=== PATIENT | female | born 1975 | race Hispanic/Latino ===

== ENCOUNTER 2022-01-12 18:26 | Emergency (ER) | payer BC, OTHER ==
[~2022-01-12] VITALS: Ht 160 cm; Wt 73.5 kg
[2022-01-12 19:40] LABS: BASOPHILS % (AUTO) 0.5 % (0.0-5.0); EOSINOPHILS % (AUTO) 1.7 % (0.0-8.0); HEMATOCRIT 41.8 % (36-48); LYMPHOCYTES % (AUTO) 29.4 % (21.0-51.0); MEAN CORPUSCULAR HEMOGLOBIN 29.4 pg (27.0-33.0); MEAN CORPUSCULAR HGB CONC 34.7 g/dL (32.0-36.0); MEAN CORPUSCULAR VOLUME 84.6 fL (79-99); MONOCYTES % (AUTO) 4.8 % (3.0-13.0); NEUTROPHILS % (AUTO) 63.3 % (40.0-77.0); PLATELET COUNT (AUTO) 328 K/uL (130-400); RED BLOOD CELL COUNT(AUTO) 4.94 MIL/uL (4.00-5.50); RED CELL DISTRIBUTION WIDTH 14.1 % (11.0-15.5); WHITE BLOOD COUNT (AUTO) 9.9 K/uL (4.8-10.8)
[2022-01-12 19:54] LABS: CREATININE 0.8 mg/dL (0.5-1.5); POTASSIUM 3.4 mmol/L (3.5-5.1); TOTAL PROTEIN, SERUM 8.1 g/dL (6.0-8.3)
[2022-01-12 20:24] LABS: APPEARANCE,URINE CLEAR (CLEAR); BILIRUBIN,URINE NEGATIVE (NEGATIVE); COLOR,URINE LIGHT-YELLOW (YELLOW); GLUCOSE, URINE (UA) NEGATIVE (NEGATIVE); KETONES,URINE NEGATIVE (NEGATIVE); LEUKOCYTE ESTERASE ,URINE NEGATIVE Leu/uL (NEGATIVE); NITRATE,URINE NEGATIVE (NEGATIVE); OCCULT BLOOD,URINE NEGATIVE (NEGATIVE); PH,URINE 6.5 (5.0-8.0); PROTEIN,URINE NEGATIVE (NEGATIVE); UROBILINOGEN,URINE 0.2 mg/dL (0.2-1.0)
[2022-01-12 20:26] LABS: BACTERIA,URINE RARE /HPF (None Seen); MUCUS,URINE RARE LPF (None Seen); SQUAMOUS EPITHELIAL CELL,UR RARE /HPF (0-2)
[2022-01-12] MEDS ORDERED: KETOROLAC 30MG VIAL (30MG/ML) IVP ONE (20:30)
[2022-01-12] MEDS ORDERED: IOHEXOL 350 MG/ML 100ML INFUS..BTL IV ONE (20:44)
[2022-01-12 21:30] VITALS: BP 98/50
[2022-01-12] MEDS ORDERED: ONDANSETRON 4MG INJ IVP ONE (21:30)
[2022-01-12] MEDS ORDERED: MORPHINE 4 MG SYG IVP ONE (21:30)
[2022-01-12] MEDS ORDERED: TRAM50TA4 PO (21:45)
[2022-01-12] MEDS ORDERED: DICY20TA2 PO (21:45)
[2022-01-12] MEDS ORDERED: DICYCLOMINE 20MG (10MG/ML) AMP IM STA (22:20)
== END 2022-01-12 22:34 | disposition home or self-care (01) ==
LOC: EDH 18:26
DX: R10.31 Right lower quadrant pain (principal); R11.0 Nausea; Z88.8 Allergy status to other drugs, medicaments and biological substances; Z90.49 Acquired absence of other specified parts of digestive tract; Z98.890 Other specified postprocedural states
CPT/HCPCS: 74177; 99284; 96374; 96375; 80053; 85025; 87088; 81001; 36415; 96372; J2405; J2270; J1885; J0500; Q9967

== ENCOUNTER 2024-04-12 00:32 | Emergency (ER) | payer BC ==
[~2024-04-12] VITALS: Ht 160 cm; Wt 79.8 kg
[~2024-04-12 00:32] MED LIST: DICY20TA2 PO; TRAM50TA4 PO
[2024-04-12] MEDS: IpraTROPium/alBUTERol SULFATE 3 ML SOLUTION IH ONE ×2 (01:21→01:35)
[2024-04-12 01:22] VITALS: PULSE 96; RESP 19
[2024-04-12 01:26] LABS: BASOPHILS # (AUTO) 0.05 K/uL (0.00-0.20); BASOPHILS % (AUTO) 0.9 % (0.0-5.0); EOSINOPHILS # (AUTO) 0.12 K/uL (0.00-0.70); EOSINOPHILS % (AUTO) 2.1 % (0.0-8.0); HEMATOCRIT 41.4 % (36-48); IMMATURE GRANULOCYTE ABSOLUTE 0.01 K/uL (0-1); LYMPHOCYTES # (AUTO) 2.8 K/uL (1.0-4.8); LYMPHOCYTES % (AUTO) 48.5 % (21.0-51.0); MEAN CORPUSCULAR HEMOGLOBIN 29.1 pg (27.0-33.0); MEAN CORPUSCULAR HGB CONC 34.1 g/dL (32.0-36.0); MEAN CORPUSCULAR VOLUME 85.5 fL (79-99); MONOCYTES # (AUTO) 0.3 K/uL (0.1-1.0); MONOCYTES % (AUTO) 5.6 % (3.0-13.0); NEUTROPHILS # (AUTO) 2.4 K/uL (1.8-7.7); NEUTROPHILS % (AUTO) 42.7 % (40.0-77.0); PLATELET COUNT (AUTO) 302 K/uL (130-400); RED BLOOD CELL COUNT(AUTO) 4.84 MIL/uL (4.00-5.50); RED CELL DISTRIBUTION WIDTH 14.1 % (11.0-15.5); WHITE BLOOD COUNT (AUTO) 5.7 K/uL (4.8-10.8)
[2024-04-12 01:33] LABS: CREATININE 0.7 mg/dL (0.5-1.0)
[2024-04-12] MEDS: Solu-medROL 125MG VIAL IVP ONE (01:35)
[2024-04-12 01:36] VITALS: PULSE 93; RESP 19
[2024-04-12] MEDS: 0.9%NACL 1000ML 1,000 ML IV ONE (01:39)
[2024-04-12 01:40] LABS: POTASSIUM 2.8 mmol/L (3.5-5.1); SARS-CoV-2, RNA, NAAT NEGATIVE SARS CoV-2 (NEGATIVE)
[2024-04-12 01:45] LABS: INFLUENZA TYPE A Negative For Type A (NEGATIVE); INFLUENZA TYPE B Negative For Type B (NEGATIVE)
[2024-04-12] MEDS: PoTASSium BIcarbonate/CIT AC 25 MEQ TABLET.EFF ONE (01:55)
[2024-04-12] MEDS: MAGNESIUM 2GM PREMIX 50ML 50 ML IV ONE (01:56)
[2024-04-12] MEDS: MAGNESIUM 2GM PREMIX 50ML 50 ML IV SCH (01:58)
[2024-04-12] MEDS: PoTASSium BIcarbonate/CIT AC 25 MEQ TABLET.EFF PO ONE (01:58)
[2024-04-12] MEDS ORDERED: METH4TAB3 PO (02:22)
[2024-04-12] MEDS ORDERED: FLUT1BLS11 IH (02:22)
[2024-04-12] MEDS ORDERED: BENZ-39 PO (02:22)
--- NOTE | 2024-04-12 02:26 | ERN ---
General Chief Complaint: Shortness of Breath Stated Complaint: C/O COUGH,SOB,WHEEZING, HEADACHE, CHEST DISCOMFORT Time Seen by MD: 00:34 Time Seen by Midlevel: 00:34 Source: patient History of Present Illness Initial Comments The patient is a 49-year-old female presenting to the emergency department for evaluation of cough that has been progressively worsening over the last two weeks. 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 She has been taking [id number] medication with little to no relief. Allergies: Coded Allergies: nitrofurantoin (Unverified Allergy, Unknown, 01/12/22) Home Meds Active Scripts Fluticasone Propion/Salmeterol (Fluticasone-Salmeterol 100-50) 100 Mcg-50 Mcg/Dose Blst.w.dev, 1 PUFF IH BID for wheezing/sob for 30 Days, #60 EACH 0 Refills Prov:VALERIE HUANG 04/12/24 Benzonatate (Tessalon Perles) 100 Mg Cap, 100 MG PO TID for cough, #30 CAP 0 Refills Prov:VALERIE HUANG 04/12/24 Methylprednisolone (Medrol) 4 Mg Tab.ds.pk, 1 TAB PO AD for 6 Days, #21 TAB 0 Refills 6 on day 1 then reduce by one tablet daily until gone Prov:VALERIE HUANG 04/12/24 Tramadol Hcl (Tramadol HCl) 50 Mg Tablet, 50 MG PO TIDP PRN for PAIN, #12 TAB Prov:ELFEGO FOSTER MD 01/12/22 Dicyclomine HCl (Bentyl) 20 Mg Tab, 20 MG PO TIDP PRN for PAIN, #30 TAB Prov:ELFEGO FOSTER MD 01/12/22 Past Medical History Past Medical History: No Pertinent History Medical History Other: ENDOMETRIOSIS Past Surgical History: Hysterectomy, Cholecystectomy Social History Social History: ETOH, Lives with family ROS Dictation CONSTITUTIONAL: Negative except for HPI HEAD/FACE: Negative except for HPI EENT: Negative except for HPI RESPIRATORY: Negative except for HPI GASTROINTESTINAL/ABDOMINAL: Negative except for HPI GENITOURINARY: Negative except for HPI MUSCULOSKELETAL: Negative except for HPI INTEGUMENTARY: Negative except for HPI NEUROLOGICAL/PSYCH: Negative except for HPI HEMATOLOGIC/LYMPHATIC: Negative except for HPI All Systems Negative, Except as noted above. 13 point review of systems assessed and all negative except for above. Physical Exam Physical Exam Dictation Vital Signs reviewed General Appearance: Alert, oriented x 3, no acute distress, well developed, nourished. Head and Face: non-traumatic. Eyes: PERRL, pink conjunctivas, eyelid no trauma, anterior chamber with arcus senilis. Ears: Pinnas intact and no signs of trauma or erythema ear canals clear and no discharge TM no erythema Nose: No discharge, no bleeding. Oropharynx: Mouth normal, tongue pink, pharynx clear,no erythema, tonsils no exudates, no abscesses noted, mucous membrane moist Neck: Supple, non-tender, no thyromegaly, no masses, no JVD, no bruits Breast:Deferred Chest:No tenderness, no crepitus, no paradoxical movement, no retractions Lungs:Clear, well-ventilated, symmetric, no rales, wheezing to right lower lung field, no rhonchi, no stridor, good breath sounds bilaterally Heart: Regular rate, regular rhythm, no murmur, no gallops Vascular: no peripheral edema, Abdomen: Soft, positive bowel sounds, nondistended, no guarding, nontender, no rebound, no masses no hepatomegaly, no splenomegaly, no Doshi's sign, no hernias. Rectal: Deferred Genital: Deferred Neurological: Normal speech, motor function intact, sensory function intact Musculoskeletal: Neck nontender, full range of motion, back nontender, full range of motion, Extremities: nontender, full range of motion Skin: Color pink, dry, no turgor, no rash, no lacerations, no abrasions, no contusions. Lymphatic: Deferred Results Laboratory and Microbiology Lab and Micro Result Laboratory Tests Test 04/12/24 01:15 White Blood Count 5.7 K/uL (4.8-10.8) Red Blood Count 4.84 MIL/uL (4.00-5.50) Hemoglobin 14.1 g/dL (12.0-16.0) Hematocrit 41.4 % (36-48) Mean Corpuscular Volume 85.5 fL (79-99) Mean Corpuscular Hemoglobin 29.1 pg (27.0-33.0) Mean Corpuscular Hemoglobin Concent 34.1 g/dL (32.0-36.0) Red Cell Distribution Width 14.1 % (11.0-15.5) Platelet Count 302 K/uL (130-400) Mean Platelet Volume 9.9 fL (7.5-10.5) Immature Granulocyte % (Auto) 0.2 % (0-1) Neutrophils (%) (Auto) 42.7 % (40.0-77.0) Lymphocytes (%) (Auto) 48.5 % (21.0-51.0) Monocytes (%) (Auto) 5.6 % (3.0-13.0) Eosinophils (%) (Auto) 2.1 % (0.0-8.0) Basophils (%) (Auto) 0.9 % (0.0-5.0) Neutrophils # (Auto) 2.4 K/uL (1.8-7.7) Lymphocytes # (Auto) 2.8 K/uL (1.0-4.8) Monocytes # (Auto) 0.3 K/uL (0.1-1.0) Eosinophils # (Auto) 0.12 K/uL (0.00-0.70) Basophils # (Auto) 0.05 K/uL (0.00-0.20) Absolute Immature Granulocyte (auto 0.01 K/uL (0-1) Nucleated Red Blood Cells 0.0 % (0.0-0.19) Sodium Level 139 mmol/L (136-145) Potassium Level 2.8 mmol/L (3.5-5.1) *L Chloride Level 104 mmol/L (101-111) Carbon Dioxide Level 31 mmol/L (21-32) Blood Urea Nitrogen 15 mg/dL (7-18) Creatinine 0.7 mg/dL (0.5-1.0) Glomerular Filtration Rate Calc 105 mL/min (>90) Random Glucose 129 mg/dL (70-105) H Total Calcium 9.3 mg/dL (8.5-10.1) Influenza Type A Antigen Negative For Type A Influenza Type B Antigen Negative For Type B SARS-CoV-2, RNA, NAAT NEGATIVE SARS CoV-2 Labs Reviewed?: Yes MDM MDM: Differential diagnosis: Acute bronchitis, pneumonia, viral illness, upper respiratory infection There are no social concerns with this patient. Prescription drug management Prescriptions will include: Medrol pack, Tessalon Perles Medical management and examination interpretation discussions were had by me with other qualified healthcare professionals as indicated for the patient's care. ED Course Orders Procedure Category Date Status Time Cbc With Differential LAB 04/12/24 Complete 00:43 Basic Metabolic Panel LAB 04/12/24 Complete 00:43 Influenza Type A & B, LAB 04/12/24 Complete Rapid 00:43 Covid Rna Naat LAB 04/12/24 Complete 00:43 Chest 1vw RAD 04/12/24 Taken 00:43 Ipratropium/Albuterol PHA 04/12/24 Complete Neb (Duoneb) 01:00 0.9%Nacl 1000ml (Ns PHA 04/12/24 Complete 1000ml) 01:00 Methylprednisolone PHA 04/12/24 Complete Succ 125mg (Solu-Medr 01:00 Ipratropium/Albuterol PHA 04/12/24 Complete Neb (Duoneb) 02:00 Potassium Bicarb/Cit PHA 04/12/24 Complete Ac 25meq (K-Lyte Ta 02:00 Magnesium 2gm Premix PHA 04/12/24 Complete 50ml (Magnesium 2gm 02:00 Potassium Bicarb/Cit PHA 04/12/24 Complete Ac 25meq (K-Lyte Ta 01:49 Magnesium 2gm Premix PHA 04/12/24 Complete 50ml (Magnesium 2gm 01:50 Current Medications Medications (Trade) Dose Ordered Sig/Brandy Route PRN Reason Start Time Stop Time Status Last Admin Dose Admin Albuterol (DUOneb) 1 UDVIAL ONCE ONCE IH 04/12/24 01:00 04/12/24 01:01 DC 04/12/24 01:21 Albuterol (DUOneb) 1 udvial ONCE ONCE IH 04/12/24 02:00 04/12/24 02:01 DC 04/12/24 01:35 Magnesium Sulfate 50 ml @ 0 mls/hr PROTOCOL IV 04/12/24 02:00 04/12/24 02:50 DC 04/12/24 01:58 Magnesium Sulfate 50 ml @ As Directed STK-MED ONCE IV 04/12/24 01:50 04/12/24 01:50 DC Methylprednisolone Sodium Succinate (Solu-medROL 125MG) 125 mg ONCE ONCE IVP 04/12/24 01:00 04/12/24 01:01 DC 04/12/24 01:35 Potassium Bicarbonate (K-Lyte Tablet Eff 25 Meq Tablet.eff) 25 meq STK-MED ONCE .ROUTE 04/12/24 01:49 04/12/24 01:49 DC Potassium Bicarbonate (K-Lyte Tablet Eff 25 Meq Tablet.eff) 50 meq ONCE ONCE PO 04/12/24 02:00 04/12/24 02:01 DC 04/12/24 01:58 Sodium Chloride 1,000 ml @ 0 mls/hr ONCE ONCE IV 04/12/24 01:00 04/12/24 01:01 DC 04/12/24 01:39 Vital Signs Date Time Temp Pulse Resp B/P (MAP) Pulse Ox O2 Delivery O2 Flow Rate FiO2 04/12/24 02:47 98.1 92 20 142/60 99 Room Air* 0 21 04/12/24 01:36 93 19 04/12/24 01:24 98.2 89 18 158/74 98 Room Air* 0 21 04/12/24 01:22 96 19 04/12/24 00:34 98.2 96 26 165/99 97 Room Air DX & DISP Disposition: Discharge Departure Impression: Primary Impression: Acute bronchitis Additional Impression: Hypokalemia Condition: Stable Scripts Fluticasone Propion/Salmeterol (Fluticasone-Salmeterol 100-50) 100 Mcg-50 Mcg/Dose Blst.w.dev 1 PUFF IH BID for wheezing/sob for 30 Days, #60 EACH 0 Refills Prov: VALERIE HUANG 04/12/24 Benzonatate (Tessalon Perles) 100 Mg Cap 100 MG PO TID for cough, #30 CAP 0 Refills Prov: VALERIE HUANG 04/12/24 Methylprednisolone (Medrol) 4 Mg Tab.ds.pk 1 TAB PO AD for 6 Days, #21 TAB 0 Refills 6 on day 1 then reduce by one tablet daily until gone Prov: VALERIE HUANG 04/12/24 Additional Instructions: Your blood work today showed a low potassium. You were given oral potassium in the emergency department. The remainder of your blood work is unremarkable. Your chest x-ray does not show any evidence of pneumonia. You tested negative for influenza a, influenza B, and COVID-19. Your symptoms are most likely related to acute bronchitis. I have given you a prescription for steroids, Tessalon Perles, and an inhaler which should help improve your symptoms over the next couple of days. Referrals: JULIANNE GALINDO MD (PCP) Time of Disposition: 02:20 I have reviewed the case, and I agree with, Diagnosis and Plan I performed the substantive portion of the visit. I have reviewed and personally made and approve the management plan that is documented in the note by myself or the PHIL. I acknowledge for responsibility for the patient's management plan. VALERIE HUANG Apr 12, 2024 02:26
[2024-04-12 02:47] VITALS: BP 142/60; PULSE 92; RESP 20; TEMP 98.1; O2SAT 99
--- NOTE | 2024-04-12 09:41 | HMCIMG ---
CHEST 1VW HISTORY: Shortness of breath COMPARISON: None FINDINGS: A frontal projection of the chest was obtained. No acute pulmonary infiltrates is seen. The heart is normal in size. Degenerative changes are seen. Prominent interstitial markings are seen. No evidence of aortic calcification is seen. IMPRESSION: 1. No acute pulmonary infiltrate is seen.
== END 2024-04-12 02:50 | disposition home or self-care (01) ==
LOC: EDH 00:32
DX: J20.9 Acute bronchitis, unspecified (principal); E87.6 Hypokalemia; Z20.822 Contact with and (suspected) exposure to COVID-19; Z79.51 Long term (current) use of inhaled steroids; Z88.1 Allergy status to other antibiotic agents; Z90.49 Acquired absence of other specified parts of digestive tract; Z90.710 Acquired absence of both cervix and uterus
CPT/HCPCS: 99284; 96365; 71045; 87635; 96375; 80048; 85025; 87804 ×2; 36415; 94640; J2919; J3475; J7030